=== PATIENT | male | born 1985 | race Caucasian/White ===

== ENCOUNTER → 2019-12-06 | Outpatient (REF) | payer BC ==
[2019-12-06 11:20] LABS: ALBUMIN 3.9 GM/DL (3.2-5.2); ALT/SGPT 29 U/L (12-78); BILIRUBIN,TOTAL 0.4 MG/DL (0.2-1.0); BLOOD UREA NITROGEN 9 MG/DL (7-18); CALCIUM LEVEL 9.2 MG/DL (8.5-10.1); CARBON DIOXIDE LEVEL 28 MEQ/L (21-32); CHLORIDE LEVEL 106 MEQ/L (98-107); CHOLESTEROL LEVEL 169 MG/DL (<200); CHOLESTEROL RISK RATIO 4.225 (<5); CREATININE FOR GFR 0.97 MG/DL (0.70-1.30); FREE T4 0.99 NG/DL (0.76-1.46); GLOMERULAR FILTRATION RATE > 60.0 (>60); GLUCOSE, FASTING 92 MG/DL (70-100); HDL CHOLESTEROL 40 MG/DL (>40); LDL CHOLESTEROL 112 MG/DL (<100); NON-HDL-C 129 MG/DL; POTASSIUM SERUM 4.5 MEQ/L (3.5-5.1); SODIUM LEVEL 142 MEQ/L (136-145); TOTAL PROTEIN 7.4 GM/DL (6.4-8.2); TRIGLYCERIDES LEVEL 84 MG/DL (<150)
== END ==
LOC: M SFHCPLAZ 07:49
PROVIDERS: ATTEND Physician Assistant
DX: Z00.00 Encounter for general adult medical examination without abnormal findings (principal); Z13.29 Encounter for screening for other suspected endocrine disorder; Z13.220 Encounter for screening for lipoid disorders

== ENCOUNTER → 2019-12-17 | Outpatient (CLI) | payer BC ==
--- NOTE | 2019-12-18 11:26 | REP ---
FOCUSED LEFT BREAST SONOGRAPHY: HISTORY: Left breast lump, 3-month followup. Comparison sonography, May 31, 2019 from [facility] demonstrated a hyperechoic nodule at 11:30-12 o'clock-position in the subcutaneous region measuring 1.6 x 1.4 x 1.6 cm. This was felt, in combination with mammography from June 02, 2019, to represent lipoma. The mammography also demonstrated a gynecomastia pattern in the subareolar soft tissues. SONOGRAPHIC FINDINGS: The left breast is scanned through the palpable area 9-o'clock through 11-o'clock position. There are multiple, slightly hyperechoic fat lobules in the subdermal and subcutaneous space in the right breast in the area of interest. These range in size from 0.5 cm in greatest diameter to 1.8 cm in greatest diameter. These are felt to be normal benign subcutaneous fat lobules. No sonographically suspicious features. IMPRESSION: BI-RADS category 2 benign sonographic findings. Clinical followup is advised. Electronically Signed by Blayne Mack MD 12/18/2019 11:34 A
== END ==
LOC: M RAD 15:38
PROVIDERS: ATTEND Physician Assistant
DX: N63.12 Unspecified lump in the right breast, upper inner quadrant (principal)

== ENCOUNTER → 2020-03-31 | Outpatient (CLI) | payer BC ==
[~2020-03-31] MED LIST: BUPR150T3 PO
== END ==
LOC: M LABSMTC 11:22
PROVIDERS: ATTEND Anesthesiology
DX: Z01.818 Encounter for other preprocedural examination (principal); Z11.59 Encounter for screening for other viral diseases

== ENCOUNTER 2020-04-03 10:06 | Day surgery (SDC) | payer BC ==
[~2020-04-03] VITALS: Ht 182.9 cm; Wt 101.6 kg
[2020-04-03] MEDS: NS 1,000 ML IV SCH (10:17)
--- NOTE | 2020-04-03 10:49 | ROOR ---
Patient Name: Karl Lopez Procedure Date: 04/03/2020 10:28 AM Date of : 1985 Age: 35 Room: [id number] Gender: Male Note Status: Finalized Procedure: Colonoscopy Indications: Screening in patient at increased risk: Colorectal cancer in mother before age 60 Providers: Lev RODRIGUEZ MD Referring MD: Melody Mcginnis [facility] Requesting Provider: Medicines: Monitored Anesthesia Care Complications: No immediate complications. Procedure: Pre-Anesthesia Assessment: - The heart rate, respiratory rate, oxygen saturations, blood pressure, adequacy of pulmonary ventilation, and response to care were monitored throughout the procedure. The Colonoscope was introduced through the anus and advanced to the terminal ileum, with identification of the appendiceal orifice and IC valve. The colonoscopy was performed without difficulty. The patient tolerated the procedure well. The quality of the bowel preparation was good. Findings: The perianal and digital rectal examinations were normal. A diminutive polyp was found in the ascending colon. The polyp was sessile. The polyp was removed with a cold snare. Resection and retrieval were complete. Small Internal Hemorrhoids. The exam was otherwise without abnormality on direct and retroflexion views. Impression: - One diminutive polyp in the ascending colon, removed with a cold snare. Resected and retrieved. - Small Internal Hemorrhoids. - The colonoscopy is otherwise normal on direct and retroflexion views. Recommendation: - Repeat colonoscopy in 5 years for surveillance. - Telephone endoscopist for pathology results in 2 weeks. Lev Rodriguez MD Lev RODRIGUEZ MD 04/03/2020 10:48:46 AM Electronically signed by Lev RODRIGUEZ MD Number of Addenda: 0 Note Initiated On: 04/03/2020 10:28 AM Estimated Blood Loss: Estimated blood loss: none.
[2020-04-03 11:10] VITALS: BP 128/69
[2020-04-03] MEDS ORDERED: propofoL 200 MG/20 ML VIAL As Ordered ONE (11:18)
[2020-04-03] MEDS ORDERED: LIDOCAINE 2% 100MG/5ML SDV (FOR ANES.) As Ordered ONE (11:18)
== END 2020-04-03 11:28 | disposition home or self-care (01) ==
LOC: M OPP 10:06
PROVIDERS: ATTEND Internal Medicine Gastroenterology
DX: Z12.11 Encounter for screening for malignant neoplasm of colon (principal); Z80.0 Family history of malignant neoplasm of digestive organs; K63.5 Polyp of colon; K64.8 Other hemorrhoids

== ENCOUNTER → 2021-02-01 | Outpatient (CLI) | payer BC, OTHER ==
[~2021-02-01] MED LIST changes: +BUPR150T12 PO; -BUPR150T3 PO
--- NOTE | 2021-02-01 11:02 | REP ---
INDICATION: BREAST LUMP IN UPPER INNER QUAD / ARM PIT. COMPARISON: 12/17/2019. TECHNIQUE: Real-time sonographic evaluation of left breast performed. FINDINGS: Once again between the 8 and 12 o'clock positions there are subcutaneous hyperechoic nodules present, felt to represent nodules of fat. These are unchanged in appearance and size. The largest is at 11 o'clock and measures 1.7 x 0.7 x 1.7 cm. There is a 2-3 mm cyst at 12 o'clock approximately 9 cm from the nipple. IMPRESSION: BIRADS/ACR category 2, benign. Stable hyperechoic nodules between 8 and 12 o'clock compatible with nodules of fat. There is a 2-3 mm cyst at 12 o'clock. No suspicious mass. RECOMMENDATION: Clinical follow-up. <Electronically signed by Luis Hernadez > 02/01/21 [id number]
== END ==
LOC: M RAD 08:49
PROVIDERS: ATTEND Physician Assistant
DX: N63.22 Unspecified lump in the left breast, upper inner quadrant (principal)

== ENCOUNTER → 2021-08-07 | Outpatient (CLI) | payer BC ==
--- NOTE | 2021-08-07 15:29 | REP ---
INDICATION: LEFT BREAST LUMP UPPER INNER QUADRANT BREAST TENDERNESS. COMPARISON: 06/02/2019 and multiple breast ultrasounds TECHNIQUE: Diagnostic bilateral digital mammography was carried out in the CC and MLO projections using both 2D and 3D modalities and compared to the prior exams. In addition, spot compression views of the left breast were obtained covering the area where the patient complains of a palpable mass. Diagnostic ultrasonography was also obtained over the region FINDINGS: The breasts are symmetric in size and shape. Once again, there is flame shaped radiodensity in the retroareolar region of each breast status quo. There are no soraya soft tissue densities or spiculated masses. There is no internal architectural distortion. There are no suspicious microcalcifications. There is no skin thickening or nipple retraction. Spot compression views show no abnormalities. Diagnostic left breast ultrasonography over the regions of interest show 2 echogenic areas 1 at the 6 o'clock position measuring 6 mm and the other at the 8 o'clock position measuring 7 mm. Shear wave elastography was performed on these showing extremely low KPA values. The appearance of these are the same as those areas interrogated on the prior ultrasound examinations of 05/31/2019, 12/17/2019, and 02/01/2021. IMPRESSION: BIRADS/ACR category 2 benign findings. There is bilateral gynecomastia status quo and there are benign fat lobules. There is no evidence of malignant alteration of either breast. This mammogram was interpreted with the aid of an FDA-approved computer-aided detection system. The patient states he had a clinical breast exam in July 2021. The patient letter being requested is M1. RECOMMENDATION: Repeat screening mammography recommended 1 year (for women over 40). <Electronically signed by Trent Hector > 08/07/21 [id number]
== END ==
LOC: M WHC 13:12
PROVIDERS: ATTEND Physician Assistant
DX: N63.0 Unspecified lump in unspecified breast (principal); N64.4 Mastodynia

== ENCOUNTER → 2022-02-21 | Outpatient (CLI) | payer BC ==
[2022-02-21 11:45] LABS: BASO % 0.3 % (0.0-1.0); EOS # 0.1 10^3/uL (0.0-0.5); EOS % 1.1 % (0.0-3.0); HEMATOCRIT 43.6 % (42.0-52.0); HEMOGLOBIN 15.1 g/dl (13.5-17.5); LYMPH # 1.5 10^3/uL (1.5-5.0); LYMPH % 23.1 % (24.0-44.0); MEAN CORPUSCULAR HEMOGLOBIN 30.1 pg (27.0-33.0); MEAN CORPUSCULAR HGB CONC 34.6 g/dl (32.0-36.5); MONO # 0.4 10^3/uL (0.0-0.8); MONO % 6.3 % (2.0-8.0); NEUTROPHILS # 4.4 10^3/uL (1.5-8.5); NEUTROPHILS % 68.7 % (36.0-66.0); PLATELET COUNT, AUTOMATED 194 10^3/uL (150-450); RED BLOOD COUNT 5.01 10^6/uL (4.30-6.10); WHITE BLOOD COUNT 6.4 10^3/uL (4.0-10.0)
[2022-02-21 12:16] LABS: ALT/SGPT 28 U/L (12-78); BILIRUBIN,TOTAL 0.6 MG/DL (0.2-1.0); BLOOD UREA NITROGEN 8 MG/DL (7-18); CALCIUM LEVEL 9.7 MG/DL (8.5-10.1); CARBON DIOXIDE LEVEL 33 MEQ/L (21-32); CHLORIDE LEVEL 107 MEQ/L (98-107); CREATININE FOR GFR 0.91 MG/DL (0.70-1.30); GLOMERULAR FILTRATION RATE > 60.0 (>60); GLUCOSE, FASTING 98 MG/DL (70-100); POTASSIUM SERUM 4.6 MEQ/L (3.5-5.1); SODIUM LEVEL 141 MEQ/L (136-145)
[2022-02-21 12:17] LABS: ALBUMIN 4.2 GM/DL (3.2-5.2); C REACTIVE PROTEIN QUANTITATIV 0.46 MG/DL (0.00-0.30); CHOLESTEROL LEVEL 190 MG/DL (<200); CHOLESTEROL RISK RATIO 3.584 (<5); FREE T4 1.04 NG/DL (0.76-1.46); HDL CHOLESTEROL 53 MG/DL (>40); LDL CHOLESTEROL 125 MG/DL (<100); NON-HDL-C 137 MG/DL; TOTAL PROTEIN 7.3 GM/DL (6.4-8.2); TRIGLYCERIDES LEVEL 61 MG/DL (<150)
[2022-02-21 12:19] LABS: ERYTHROCYTE SEDIMENTATION RATE 3 mm/hr (0-15)
[2022-02-21 12:20] LABS: TOTAL 25(OH) VITAMIN D 20.5 NG/ML (30.0-100.0); VITAMIN B12 LEVEL 261 PG/ML (247-911)
[2022-02-21 12:33] LABS: HEMOGLOBIN A1c 5.2 %
[2022-02-22 21:07] LABS: ANA (HEP2) Negative (.)
== END ==
LOC: M PLALAB 08:18
PROVIDERS: ATTEND Physician Assistant
DX: I87.2 Venous insufficiency (chronic) (peripheral) (principal)

== ENCOUNTER → 2022-03-18 | Outpatient (REF) | LOC: M EMP 10:49 | PROVIDERS: ATTEND Family Medicine | DX: Z20.822 Contact with and (suspected) exposure to COVID-19 (principal) ==

== ENCOUNTER → 2022-08-21 | Outpatient (REF) | payer BC ==
[2022-08-21 14:18] LABS: GC DNA AMPLIFICATION NEGATIVE (NEGATIVE)
[2022-08-21 14:41] LABS: HIV 1&2 SCREEN CENTAUR NEGATIVE (NEGATIVE); TOTAL 25(OH) VITAMIN D 22.4 NG/ML (30.0-100.0)
== END ==
LOC: M SFHCADAM 07:50
PROVIDERS: ATTEND Physician Assistant
DX: E55.9 Vitamin D deficiency, unspecified (principal); Z11.3 Encounter for screening for infections with a predominantly sexual mode of transmission

== ENCOUNTER → 2022-11-22 | Outpatient (REF) ==
[2022-11-22 10:34] LABS: RSV AMPLIFICATION NEGATIVE (NEGATIVE)
== END ==
LOC: M EMP 08:59
PROVIDERS: ATTEND Family Medicine
DX: Z20.818 Contact with and (suspected) exposure to other bacterial communicable diseases (principal)

== ENCOUNTER → 2023-03-06 | Outpatient (REF) | payer BC | LOC: M SFHCPLAZ 16:47 | PROVIDERS: ATTEND Physician Assistant | DX: J02.9 Acute pharyngitis, unspecified (principal); R50.9 Fever, unspecified ==

== ENCOUNTER → 2023-03-06 | Outpatient (CLI) | payer BC | LOC: M PLAIMG 10:00 | PROVIDERS: ATTEND Physician Assistant | DX: R50.9 Fever, unspecified (principal); R05.1 Acute cough ==

== ENCOUNTER → 2023-03-24 | Outpatient (REF) | payer BC ==
[2023-03-24 13:31] LABS: TOTAL 25(OH) VITAMIN D 43.1 NG/ML (20.0-100.0)
[2023-03-24 13:55] LABS: HIV 1&2 SCREEN CENTAUR NEGATIVE (NEGATIVE)
== END ==
LOC: M SFHCADAM 07:58
PROVIDERS: ATTEND Physician Assistant
DX: E55.9 Vitamin D deficiency, unspecified (principal); Z72.51 High risk heterosexual behavior

== ENCOUNTER → 2023-04-09 | Outpatient (CLI) | payer BC | LOC: M WHC 10:58 | PROVIDERS: ATTEND Physician Assistant | DX: N63.0 Unspecified lump in unspecified breast (principal); N62 Hypertrophy of breast | CPT/HCPCS: 77066; G0279 ==

== ENCOUNTER → 2023-11-28 | Outpatient (REF) ==
[2023-11-28 13:31] LABS: RSV AMPLIFICATION NEGATIVE (NEGATIVE)
== END ==
LOC: M EMP 12:07
PROVIDERS: ATTEND Family Medicine
DX: Z11.59 Encounter for screening for other viral diseases (principal)

== ENCOUNTER → 2023-12-07 | Outpatient (REF) | payer BC | LOC: M LAB REF 17:36 | PROVIDERS: ATTEND Physician Assistant | DX: J06.9 Acute upper respiratory infection, unspecified (principal); R05.9 Cough, unspecified; Z20.828 Contact with and (suspected) exposure to other viral communicable diseases ==

== ENCOUNTER → 2024-04-19 | Outpatient (CLI) | payer BC ==
[2024-04-19 10:53] LABS: BASO % 0.3 % (0.0-1.0); EOS # 0.1 10^3/uL (0.0-0.5); EOS % 1.3 % (0.0-3.0); HEMATOCRIT 42.8 % (42.0-52.0); HEMOGLOBIN 14.6 g/dl (13.5-17.5); LYMPH # 1.6 10^3/uL (1.5-5.0); LYMPH % 26.3 % (24.0-44.0); MEAN CORPUSCULAR HEMOGLOBIN 30.2 pg (27.0-33.0); MEAN CORPUSCULAR HGB CONC 34.1 g/dl (32.0-36.5); MEAN CORPUSCULAR VOLUME 88.4 fl (80.0-96.0); MONO # 0.4 10^3/uL (0.0-0.8); MONO % 6.6 % (2.0-8.0); NEUTROPHILS # 4.1 10^3/uL (1.5-8.5); PLATELET COUNT, AUTOMATED 214 10^3/uL (150-450); RED BLOOD COUNT 4.84 10^6/uL (4.30-6.10); WHITE BLOOD COUNT 6.2 10^3/uL (4.0-10.0)
[2024-04-19 11:24] LABS: ALBUMIN 3.9 G/DL (3.2-5.2); ALKALINE PHOSPHATASE 91 U/L (46-116); ALT/SGPT 16 U/L (7.0-40); AST/SGOT 8 U/L (<34); BILIRUBIN,TOTAL 0.5 MG/DL (0.3-1.2); BLOOD UREA NITROGEN 10 MG/DL (9-23); CALCIUM LEVEL 9.4 MG/DL (8.5-10.1); CARBON DIOXIDE LEVEL 26 MMOL/L (20-31); CHLORIDE LEVEL 108 MMOL/L (98-107); CHOLESTEROL LEVEL 186 MG/DL (<200); CHOLESTEROL RISK RATIO 4.02 (<5); CREATININE FOR GFR 0.81 MG/DL (0.70-1.30); GLOMERULAR FILTRATION RATE > 60.0 (>60); GLUCOSE, FASTING 103 MG/DL (60-100); HDL CHOLESTEROL 46.2 MG/DL (>40); NON-HDL-C 139.8 MG/DL; POTASSIUM SERUM 4.2 MMOL/L (3.5-5.1); SODIUM LEVEL 140 MMOL/L (136-145); TOTAL PROTEIN 6.8 G/DL (5.7-8.2); TRIGLYCERIDES LEVEL 64 MG/DL (<150)
== END ==
LOC: M PLALAB 07:49
PROVIDERS: ATTEND Physician Assistant
DX: Z00.00 Encounter for general adult medical examination without abnormal findings (principal); I73.00 Raynaud's syndrome without gangrene; E78.2 Mixed hyperlipidemia; R03.0 Elevated blood-pressure reading, without diagnosis of hypertension

== ENCOUNTER → 2024-04-19 | Outpatient (CLI) | payer BC | LOC: M WHC 08:45 | PROVIDERS: ATTEND Physician Assistant | DX: N50.82 Scrotal pain (principal) ==

== ENCOUNTER → 2024-07-13 | Outpatient (CLI) | payer BC ==
[2024-07-13 07:18] LABS: BLOOD UREA NITROGEN 12 MG/DL (9-23); CALCIUM LEVEL 9.5 MG/DL (8.5-10.1); CARBON DIOXIDE LEVEL 27 MMOL/L (20-31); CHLORIDE LEVEL 107 MMOL/L (98-107); CREATININE FOR GFR 0.87 MG/DL (0.70-1.30); GLOMERULAR FILTRATION RATE > 60.0 (>60); GLUCOSE, FASTING 107 MG/DL (60-100); POTASSIUM SERUM 4.2 MMOL/L (3.5-5.1); SODIUM LEVEL 140 MMOL/L (136-145)
[2024-07-13 07:37] LABS: HEMOGLOBIN A1c 5.2 % (4.0-6.0)
[2024-07-13 07:47] LABS: HIV 1&2 SCREEN NEGATIVE (NEGATIVE)
== END ==
LOC: M LAB 06:27
PROVIDERS: ATTEND Physician Assistant
DX: R73.01 Impaired fasting glucose (principal); Z72.51 High risk heterosexual behavior

== ENCOUNTER → 2024-08-10 | Outpatient (CLI) | payer BC | LOC: M WHC 09:39 | PROVIDERS: ATTEND Physician Assistant | DX: M79.661 Pain in right lower leg (principal) ==

== ENCOUNTER → 2024-08-26 | Outpatient (CLI) | payer BC ==
[~2024-08-26] MED LIST changes: +GASTROGRAFIN SOLUTION 30ML As Ordered ONE; +ISOVUE-370 76% 100ML VIAL As Ordered ONE
== END ==
LOC: M RAD 07:27
PROVIDERS: ATTEND Physician Assistant
DX: R10.9 Unspecified abdominal pain (principal)

== ENCOUNTER 2025-06-09 20:10 | Emergency (ER) | payer BC ==
[~2025-06-09] VITALS: Ht 185.4 cm; Wt 104.5 kg
[~2025-06-09 20:10] MED LIST changes: -GASTROGRAFIN SOLUTION 30ML As Ordered ONE; -ISOVUE-370 76% 100ML VIAL As Ordered ONE
[2025-06-09 20:14] VITALS: BP 135/80; TEMP 96.6; O2SAT 99
== END 2025-06-09 22:13 | disposition left against medical advice (07) ==
LOC: M ED 20:10
DX: Z53.21 Procedure and treatment not carried out due to patient leaving prior to being seen by health care provider (principal)

== ENCOUNTER → 2025-11-01 | Outpatient (CLI) | payer BC ==
[~2025-11-01] MED LIST changes: +D3 U5000 PO
[2025-11-01 07:25] LABS: BASO # 0.0 10^3/uL (0.0-0.2); BASO % 0.3 % (0.0-1.0); EOS # 0.1 10^3/uL (0.0-0.5); EOS % 1.2 % (0.0-3.0); LYMPH # 1.6 10^3/uL (1.5-5.0); LYMPH % 27.9 % (24.0-44.0); MONO # 0.5 10^3/uL (0.0-0.8); MONO % 8.1 % (2.0-8.0); NEUTROPHILS # 3.6 10^3/uL (1.5-8.5); NEUTROPHILS % 62.2 % (36.0-66.0); PLATELET COUNT, AUTOMATED 229 10^3/uL (150-450)
[2025-11-01 07:44] LABS: ESTIMATED AVERAGE GLUCOSE 103.0 MG/DL (60-110)
[2025-11-01 07:59] LABS: ALT/SGPT 30 U/L (7.0-40); AST/SGOT 24 U/L (<34); CALCIUM LEVEL 9.3 MG/DL (8.5-10.1); CARBON DIOXIDE LEVEL 29 MMOL/L (20-31); CHLORIDE LEVEL 104 MMOL/L (98-107); CHOLESTEROL LEVEL 204 MG/DL (<200); CHOLESTEROL RISK RATIO 4.42 (<5); CREATININE FOR GFR 0.85 MG/DL (0.70-1.30); GLOMERULAR FILTRATION RATE > 90.0 (>60); LDL CHOLESTEROL 136.1 MG/DL (<100); NON-HDL-C 157.9 MG/DL; POTASSIUM SERUM 4.0 MMOL/L (3.5-5.1); SODIUM LEVEL 139 MMOL/L (136-145); TRIGLYCERIDES LEVEL 109 MG/DL (<150)
[2025-11-01 08:01] LABS: FREE T4 1.19 NG/DL (0.89-1.76); TOTAL 25(OH) VITAMIN D 34.3 NG/ML (20.0-100.0)
== END ==
LOC: M LAB 06:49
PROVIDERS: ATTEND Physician Assistant Medical
DX: I87.2 Venous insufficiency (chronic) (peripheral) (principal)

== ENCOUNTER 2025-11-04 06:45 | Day surgery (SDC) | payer BC ==
[~2025-11-04] VITALS: Ht 182.9 cm; Wt 112.9 kg
[2025-11-04] MEDS ORDERED: LIDOCAINE 2% 100 MG/5 ML SDV (FOR ANES.) As Ordered ONE (07:40)
[2025-11-04 09:34] VITALS: BP 124/84; O2SAT 99
== END 2025-11-04 09:41 | disposition home or self-care (01) ==
LOC: M OPP 06:45
PROVIDERS: ATTEND Internal Medicine Gastroenterology
DX: Z12.11 Encounter for screening for malignant neoplasm of colon (principal); K64.8 Other hemorrhoids; Z82.49 Family history of ischemic heart disease and other diseases of the circulatory system; Z83.3 Family history of diabetes mellitus; Z80.0 Family history of malignant neoplasm of digestive organs; Z80.7 Family history of other malignant neoplasms of lymphoid, hematopoietic and related tissues